=== PATIENT | female | born 1995 | race Hispanic/Latino ===

== ENCOUNTER 2023-05-03 00:50 | Inpatient (IN) | payer SELFPAY ==
[2023-05-03] MEDS ORDERED: Lidocaine 1% (PF) 30 ML VIAL SC PRN (01:32)
[2023-05-03] MEDS ORDERED: hydrALAZINE 20 MG/ML VIAL SLOW IVP PRN ×2 (01:32→21:37)
[2023-05-03] MEDS ORDERED: Ondansetron PF 4 MG/2 ML Vial IVP PRN ×2 (01:32→06:36)
[2023-05-03] MEDS ORDERED: Butorphanol Tartrate 1 MG/ML VIAL SLOW IVP PRN (01:32)
[2023-05-03] MEDS ORDERED: Misoprostol 200 MCG TAB PR PRN (01:32)
[2023-05-03] MEDS ORDERED: Tranexamic Acid 1,000 MG/10 ML VIAL IVP PRN (01:32)
[2023-05-03] MEDS ORDERED: Carboprost 250 MCG/ML AMP IM PRN (01:32)
[2023-05-03] MEDS ORDERED: Ibuprofen 800 MG TAB PO PRN (01:32)
[2023-05-03] MEDS ORDERED: Acetaminophen 500 MG TAB PO PRN (01:32)
[2023-05-03] MEDS ORDERED: Promethazine HCl 25 MG/ML VIAL IM PRN ×2 (01:32→06:36)
[2023-05-03] MEDS ORDERED: Methylergonovine 0.2 MG/ML VIAL IM PRN (01:32)
[2023-05-03] MEDS ORDERED: fentaNYL 50 mcg/mL 1 mL Vial SLOW IVP PRN (01:32)
[2023-05-03] MEDS ORDERED: Diphenoxylate HCl/Atropine Tablet PO PRN (01:32)
[2023-05-03 02:19] LABS: Hematocrit 37.5 % (34.9-44.5); Hemoglobin 12.3 g/dL (12.0-15.5); Mean Corpuscular HGB CONC 32.8 g/dL (32.0-36.0); Mean Corpuscular Hemoglobin 28.3 pg (27.0-33.0); Mean Corpuscular Volume 86.2 fl (81.6-98.3); Mean Platelet Volume 11.4 fl (7.4-10.4); Platelet Count 245 10x3/uL (150-450); RBC Distribution Width 12.4 % (11.5-14.5); Red Blood Cell (RBC) Count 4.35 10x6/uL (3.90-5.03)
[2023-05-03 02:46] VITALS: BMI 32.9
[2023-05-03] MEDS ORDERED: fentaNYL 50 mcg/mL 1 mL Vial ONE (02:49)
[2023-05-03 02:59] LABS: Syphilis Antibody Nonreactive (Nonreactive); Syphilis Antibody Index 0.02 S/CO (<1.00 Non-Reactive)
[2023-05-03 03:00] LABS: HIV (1/2) Antibody/Antigen Non-Reactive (NonReactive); HIV 1/2 INDEX 0.06 S/CO (<1.00)
[2023-05-03 03:01] LABS: HBSAg Index 0.14 S/CO (0-0.99); Hep B Surf Ag - L&D Non-Reactive S/CO (NonReactive)
[2023-05-03] MEDS ORDERED: Oxytocin 30 units/NS 500 ML 500 ML IV SCH ×3 (04:30)
[2023-05-03] MEDS ORDERED: Lactated Ringer's 1,000 ML IV SCH (04:30)
[2023-05-03] MEDS ORDERED: fentaNYL/Ropivacaine Epidural 100 ML ONE (06:03)
[2023-05-03] MEDS ORDERED: diphenhydrAMINE 50 MG/ML VIAL IVP PRN (06:36)
[2023-05-03] MEDS ORDERED: Naloxone HCl 0.4 mg/ml Vial IVP PRN ×2 (06:36)
[2023-05-03] MEDS ORDERED: Acetaminophen 325 MG TAB PO PRN (06:36)
[2023-05-03] MEDS ORDERED: ePHEDrine Sulfate 50 MG/10 ML VIAL SLOW IVP PRN (06:36)
[2023-05-03] MEDS ORDERED: Moisturizing Cream (Eucerin) 113 GM JAR TOP PRN (06:36)
[2023-05-03] MEDS ORDERED: Lactated Ringer's 500 ML IV PRN (06:36)
[2023-05-03] MEDS ORDERED: Communication Order-Pharmacy FS SCH (06:45)
[2023-05-03] MEDS ORDERED: fentaNYL 2 mcg/Ropivacaine 0.2% Epidural 100 ML CADD EPIDURAL SCH (06:45)
[2023-05-03 09:10] LABS: Amphetamine Not Detected (NotDetected); Barbiturates Screen Not Detected (NotDetected); Benzodiazepine Screen Not Detected (NotDetected); Cocaine Metabolite Screen Not Detected (NotDetected); Methadone Not Detected (NotDetected); Methamphetamine Not Detected (NotDetected); Opiate Screen Not Detected (NotDetected); Oxycodone Screen Not Detected (NotDetected); Phencyclidine (PCP) Not Detected (NotDetected); THC/Cannabinoid Screen Not Detected (NotDetected); Tricyclic Screen Not Detected (NotDetected)
[2023-05-03 12:29] LABS: Hep C IgG Ab Non-Reactive S/CO (NonReactive); Hep C Index 0.09 S/CO (0-0.79)
[2023-05-03] MEDS ORDERED: Bupivacaine 0.25% HCL 30 ML VIAL ONE (18:38)
[2023-05-03] MEDS ORDERED: Preparation H Ointment 28 GM TUBE PR PRN (21:37)
[2023-05-03] MEDS ORDERED: Boostrix 0.5 ML (Tdap) VIAL (>/=7 yrs of age) IM ONE (21:37)
[2023-05-03] MEDS ORDERED: Lanolin Ointment 7 GM TUBE TOP PRN (21:37)
[2023-05-03] MEDS ORDERED: Milk Of Magnesia 30 ML UDCUP PO PRN (21:37)
[2023-05-03] MEDS ORDERED: Bisacodyl 10 MG SUPP PR PRN (21:37)
[2023-05-03] MEDS: Ibuprofen 800 MG TAB PO SCH (22:20)
[2023-05-04] MEDS: Ibuprofen 800 MG TAB PO SCH ×2 (05:32→15:38)
[2023-05-04] MEDS ORDERED: Ferrous Sulfate 325 MG TAB PO SCH (08:00)
[2023-05-04] MEDS ORDERED: Docusate 100 MG CAP PO SCH (09:00)
[2023-05-04] MEDS ORDERED: Prenatal Vitamin 1 TAB PO SCH (09:00)
[2023-05-04 19:54] VITALS: BP 112/72; TEMP 98.1
== END 2023-05-04 18:40 | disposition home or self-care (01) | DRG 807 ==
LOC: CSHLD/OP 00:50 → CSHLD 02:07 → CSHPED 15:29
PROVIDERS: ADMIT Emergency Medicine; ATTEND Emergency Medicine
PROC: 10E0XZZ Delivery of Products of Conception, External Approach (ICD-10-PCS; principal; 2023-05-03)
PROC: 0KQM0ZZ Repair Perineum Muscle, Open Approach (ICD-10-PCS; 2023-05-03)
PROC: 10907ZC Drainage of Amniotic Fluid, Therapeutic from Products of Conception, Via Natural or Artificial Opening (ICD-10-PCS; 2023-05-03)
PROC: 0UQMXZZ Repair Vulva, External Approach (ICD-10-PCS; 2023-05-03)
DX: O71.82 Other specified trauma to perineum and vulva (principal); Z37.0 Single live birth; O70.1 Second degree perineal laceration during delivery; Z3A.40 40 weeks gestation of pregnancy
CPT/HCPCS: 51702; 80306; 85027; 86762; 86780; 86803; 86850; 86900; 86901; 87340; 87389; 99285; J3010; S0020